=== PATIENT | female | born 1950 | race Caucasian/White ===

== ENCOUNTER → 2020-09-30 | Outpatient (CLI) | payer MEDICARE, OTHER ==
[~2020-09-30] MED LIST: CATHETER FLUSH 10 ML SYR IV PRN; HOLD METFORMIN - RECEIVED CONTRAST 20 ML VIAL IV SCH; IOHEXOL 350 MG/ML 100 ML (OMNIPAQUE 350) VIAL IV ONE; NS 100 ML (IVPB) BAG IV ONE
[2020-09-30 10:46] LABS: BUN/CREATININE RATIO 16; CREATININE SERUM 0.79 MG/DL (0.60-1.30); GFR ESTIMATED > 60
--- NOTE | 2020-09-30 12:28 | Diagnostic Imaging Report ---
PROCEDURE: CT neck soft tissue with contrast. TECHNIQUE: Multiple contiguous axial images were obtained through the neck after the administration of contrast. Auto Exposure Controls were utilized during the CT exam to meet ALARA standards for radiation dose reduction. INDICATION: Chronic hoarseness and difficulty swallowing. COMPARISON: No prior studies are available for comparison. FINDINGS: The visualized intracranial structures are unremarkable. Posterior nasopharynx and oropharynx are unremarkable. Parapharyngeal fat planes are preserved. Epiglottis and larynx are unremarkable. There is no thyroid mass identified. Submandibular and parotid glands appear to be symmetric bilaterally. No cervical or supraclavicular lymphadenopathy is seen. No mass or fluid collection is identified. IMPRESSION: Unremarkable CT soft tissue neck with contrast. Dictated by: Dictated on workstation # [id number]
== END ==
LOC: RAD 10:45
PROVIDERS: ATTEND Otolaryngology Otolaryngology/Facial Plastic Surgery
DX: R49.0 Dysphonia (principal)
CPT/HCPCS: 36415; 70491; 82565; 84520

== ENCOUNTER → 2020-12-04 | Outpatient (CLI) | payer MEDICARE, OTHER ==
--- NOTE | 2020-12-04 12:00 | Diagnostic Imaging Report ---
CLINICAL INDICATION: Patient with difficulty swallowing pills, voice change, weakness in left leg. EXAMS: 1: MRA of the [place] performed without IV contrast. Rotating 3D MIP images were created. 2: MRA of the neck performed without IV contrast. Rotating 3D MIP images were created. COMPARISON: CT scan of the neck soft tissue with contrast dated 09/30/2020. FINDINGS: MRA of the [place]: MRA of the [place] shows no significant stenosis, vascular malformation, aneurysm, or dissection. Anterior and posterior circulation is widely patent with no vascular abnormality. MRA of the neck: There is limited visualization of the more proximal anterior and posterior neck arterial vascular structures, aortic arch, and proximal great vessels due to patient's body habitus and no IV contrast administered. Three-vessel aortic arch is noted. The bilateral subclavian arteries are unable to be evaluated due to the lack of signal. The bilateral common carotid artery, bilateral cervical ICA, and bilateral ECA are grossly patent. The mid and distal bilateral cervical vertebral arteries are patent. IMPRESSION: 1: Unremarkable MRA of the [place]. 2: Limited visualization of the aortic arch, and proximal great vessels due to no IV contrast administered and patient body habitus. The bilateral subclavian arteries are unable to be evaluated. 3: The mid to distal anterior and posterior circulation of the neck major arterial vascular structures are grossly patent as visualized. Dictated by: Dictated on workstation # [id number]
--- NOTE | 2020-12-04 13:07 | Diagnostic Imaging Report ---
CLINICAL INDICATION: Patient with difficulty swallowing pills, voice change, weakness in left leg. EXAMS: 1: MRA of the [place] performed without IV contrast. Rotating 3D MIP images were created. 2: MRA of the neck performed without IV contrast. Rotating 3D MIP images were created. COMPARISON: CT scan of the neck soft tissue with contrast dated 09/30/2020. FINDINGS: MRA of the [place]: MRA of the [place] shows no significant stenosis, vascular malformation, aneurysm, or dissection. Anterior and posterior circulation is widely patent with no vascular abnormality. MRA of the neck: There is limited visualization of the more proximal anterior and posterior neck arterial vascular structures, aortic arch, and proximal great vessels due to patient's body habitus and no IV contrast administered. Three-vessel aortic arch is noted. The bilateral subclavian arteries are unable to be evaluated due to the lack of signal. The bilateral common carotid artery, bilateral cervical ICA, and bilateral ECA are grossly patent. The mid and distal bilateral cervical vertebral arteries are patent. IMPRESSION: 1: Unremarkable MRA of the [place]. 2: Limited visualization of the aortic arch, and proximal great vessels due to no IV contrast administered and patient body habitus. The bilateral subclavian arteries are unable to be evaluated. 3: The mid to distal anterior and posterior circulation of the neck major arterial vascular structures are grossly patent as visualized. Dictated by: Dictated on workstation # [id number]
== END ==
LOC: RAD 09:30
PROVIDERS: ATTEND Nurse Practitioner Family
DX: Z00.00 Encounter for general adult medical examination without abnormal findings (principal); R19.8 Other specified symptoms and signs involving the digestive system and abdomen; R49.9 Unspecified voice and resonance disorder; R29.898 Other symptoms and signs involving the musculoskeletal system; Z86.16 Personal history of COVID-19
CPT/HCPCS: 70544; 70547

== ENCOUNTER 2022-01-26 05:32 | Outpatient (CLI) | payer MEDICARE, OTHER ==
[~2022-01-26] VITALS: Ht 160 cm; Wt 56.7 kg
[2022-01-26] MEDS ORDERED: BUPR150T24 PO (11:18)
== END 2022-01-26 13:23 | disposition home or self-care (01) ==
LOC: PREOP 05:32
PROVIDERS: ATTEND Surgery
DX: Z01.818 Encounter for other preprocedural examination (principal)

== ENCOUNTER 2022-01-31 10:31 | Day surgery (SDC) | payer MEDICARE, OTHER ==
[~2022-01-31] VITALS: Ht 160 cm; Wt 56.7 kg
[2022-01-31] VITALS (7 sets, daily range): BP systolic 111–152; BP diastolic 65–91
[~2022-01-31 10:31] MED LIST changes: +BUPR150T24 PO; -CATHETER FLUSH 10 ML SYR IV PRN; -HOLD METFORMIN - RECEIVED CONTRAST 20 ML VIAL IV SCH; -IOHEXOL 350 MG/ML 100 ML (OMNIPAQUE 350) VIAL IV ONE; -NS 100 ML (IVPB) BAG IV ONE
[2022-01-31] MEDS ORDERED: ceFAZolin 2 GM IV Premixed 50 ML IV ONE (11:45)
--- NOTE | 2022-01-31 12:06 | Progress Note-Pre Operative ---
Pre-Operative Progress Note H&P Reviewed The H&P was reviewed, patient examined and no changes noted. Time Seen by Provider: 12:03 Date H&P Reviewed: January 31, 2022 Time H&P Reviewed: 12:03 Pre-Operative Diagnosis: ALS, Dysphagia BRIE GOMEZ DO January 31, 2022 12:06
[2022-01-31] MEDS ORDERED: HURRICAINE EXT TUBE (BENZOCAINE) XX ONE (12:15)
[2022-01-31] MEDS ORDERED: LACTATED RINGERS 1,000 ML IV PRN (12:15)
[2022-01-31] MEDS ORDERED: KETAMINE 50 MG/5 ML SYRINGE ONE (12:43)
[2022-01-31] MEDS ORDERED: MIDAZOLAM 2 MG/2 ML (VERSED) VIAL ONE (12:43)
[2022-01-31] MEDS ORDERED: PROPOFOL INJECTION 50 ML IV ONE (12:43)
--- NOTE | 2022-01-31 13:12 | Anesthesia-General Post-Op ---
MAC Patient Condition Mental Status/LOC: Same as Preop Cardiovascular: Satisfactory Nausea/Vomiting: Absent Respiratory: Satisfactory Pain: Controlled Complications: Absent Post Op Complications Complications None Follow Up Care/Instructions Patient Instructions None needed. Anesthesiology Discharge Order Discharge Order Patient is doing well, no complaints, stable vital signs, no apparent adverse anesthesia problems. No complications reported per nursing. SHERLY ROOT CRNA January 31, 2022 13:12
[2022-01-31] MEDS ORDERED: ACHD5005 PO (13:17)
--- NOTE | 2022-01-31 13:17 | Progress Note-Post Operative ---
Post-Operative Progess Note Surgeon (s)/Editing Internship (s) Surgeon BRIE GOMEZ DO Editing Internship: [facility] Pre-Operative Diagnosis ALS, Dysphagia Post-Operative Diagnosis same Procedure & Operative Findings Date of Procedure 01/31/22 Procedure Performed/Findings PEG tube placement Anesthesia Type IV sedation by QUALITY ENGINEER Estimated Blood Loss Estimated blood loss (mL): scant Specimens/Packing Specimens Removed none BRIE GOMEZ DO January 31, 2022 13:17
--- NOTE | 2022-01-31 13:19 | Discharge Inst-Surgical ---
Discharge Inst-Surgical Depart Medication/Instructions New, Converted or Re-Newed RX: Transmitted to Pharmacy Patient Instructions Follow up Appt: Make appointment for 1 week. [phone] Instructions: No lifting greater than 20 pounds. No strenuous activity. May shower in 24 hours, no tub bath or soaking. Use incentive spirometer at home as directed. No Smoking Skin/Wound Care: May remove bandages in am. Symptoms to Report: Appetite Changes, Extremity Discoloration, Numbness/Tingling, Swelling Increased, Bleeding Excessive, Eyesight Changes, Pain Increased, Urine Color Change, Constipation(Persistent), Fever over 101 degree F, Pain/Pressure in chest, Urinating Difficulty, Cough Up/Vomit Blood, Heart Beat Irreg/Pounding, Pain/Pressure in jaw, Cramps in feet or legs, Lightheadedness, Pain/Pressure in shoulder, Diarrhea(Persistent), Memory Changes Suddenly, Questions/Concerns, Weight gain consecutive days, Dizziness/Fainting, Nausea/Vomiting, Shortness of Breath, Weight gain over 2 pounds If questions or concerns contact your physician Or seek help at emergency department. Activity Activity as Tolerated: Yes Activity Instructions: Avoid Stress to Incision Diet Discharge Diet: Other Diet (do not use PEG tube for 24 hours) If Any Problems/Questions/Issu: Contact Your Physician, Go to Emergency Room Skin/Wound Care Infection Signs and Symptoms: Increased Redness, Foul Odor of Wound, Increased Drainage, Skin Itchy or Has a Rash, Increased Swelling, Temperature Above 101 F Bathing Instructions: BRIE Enriquez DO January 31, 2022 13:19
--- NOTE | 2022-02-01 01:09 | OPERATIVE REPORT ---
DATE OF SERVICE: 01/31/2022 PREOPERATIVE DIAGNOSES: ALS and dysphagia. POSTOPERATIVE DIAGNOSES: ALS and dysphagia pending pathology. PROCEDURE: Gastrostomy tube placement. SURGEON: Anselmo Miranda DO BUSINESS DEVELOPER: Fly Burris DO. ANESTHESIA: IV sedation by the SUPERVISOR CUTTING DEPARTMENT. SPECIMENS: None. BLOOD LOSS: Scant. FLUIDS: Per anesthesia. POSTOPERATIVE CONDITION: Stable. INDICATION FOR PROCEDURE: The patient is a 71-year-old female, who unfortunately recently diagnosed with ALS starting to have trouble swallowing liquids, can still take some solids, but she needs a PEG tube for liquids and for when she cannot swallow solids. FINDINGS: The patient had a PEG tube placed without difficulty. PROCEDURE NOTE: After informed consent was obtained, the patient was brought to the endoscopy suite. She was in her bed in supine position. Dr. Burris performed an EGD and then explored the area and insufflated the stomach. I was able to see the light, it was just below the xiphoid, went a little bit to the left, 2 fingerbreadths below the ribcage and then area was prepped and draped then local lidocaine was used to infiltrate and then able to get the needle go into the stomach and then it went up a little bit. I made a small stab incision with #11 blade and then inserted the needle through the skin and into the stomach, watched to come into the stomach with the EGD scope. He then grasped the catheter. I then inserted the guidewire. He then re-grasped the guidewire and pulled this out. I handed him the PEG tube. He then attached the PEG tube when I pulled this down through the esophagus and into the stomach, it was in good position. This was about 5 cm, placed a Betadine gel around this and then a 2 x 2 precut drain sponge and then placed the bolster over the top of this down snugly, but still could not move it on the inside of the stomach and at this point then attached the locking mechanism as well as the opening for placement of fluids. This all attached nicely. The area was then cleaned and dried, dressings placed. The patient tolerated the procedure. Sponge, instrument and needle count correct at the end of the case. She was recovered in the endoscopy suite and then back to her room. Job ID: [id number] DocumentID: [id number] Dictated Date: 01/31/2022 14:38:25 Hoop Driving Machine Operator Date: 02/01/2022 01:08:25 Dictated By: DO STEPHIE LEONE
--- NOTE | 2022-02-02 01:47 | OPERATIVE REPORT ---
DATE OF SERVICE: 01/31/2022 PREOPERATIVE DIAGNOSIS: ALS. POSTOPERATIVE DIAGNOSIS: ALS. PROCEDURE PERFORMED: Esophagogastroduodenoscopy performed by myself with gastrostomy tube placement performed by Dr. Miranda. INDICATIONS: The patient is a 71-year-old female with ALS and a gastrostomy tube placed. Consent was signed and on the chart. PROCEDURE IN DETAIL: The patient was taken to the endoscopy suite, placed in the supine position. Timeout was performed. Scope was inserted in mouth, down the esophagus, stomach and into the duodenum without difficulty. There were no polyps, masses or ulcerations. Scope was slowly retracted back into the stomach where it was further insufflated. No polyps, masses or ulcerations within the stomach. Scope was retroflexed noting a hiatal hernia. The stomach was insufflated. Within the stomach, an Angiocath needle was able to be visualized. A snare was used to snare around the catheter and once the wire was placed, wire was snared and brought out through the mouth. The gastrostomy tube was attached to it. The gastrostomy tube was placed. The scope was inserted in the mouth, down the esophagus and into the stomach, noting a gastrostomy tube. The inner bolster in good position. The scope was then slowly retracted back into the distal esophagus and then slowly retracted to completely remove, noting no other pathology. The patient tolerated procedure well without any complications. See Dr. Miranda's dictation for his procedure. Job ID: [id number] DocumentID: [id number] Dictated Date: 02/01/2022 16:30:27 Ditch Worker Date: 02/02/2022 01:47:20 Dictated By: GREG MANN DO
== END 2022-01-31 14:33 | disposition home or self-care (01) ==
LOC: ENDO 10:31
PROVIDERS: ATTEND Surgery
DX: G12.21 Amyotrophic lateral sclerosis (principal); R13.10 Dysphagia, unspecified